=== PATIENT | female | born 1935 | race Caucasian/White ===

== ENCOUNTER 2017-01-01 16:50 | Observation (INO) | payer MEDICARE, OTHER ==
[~2017-01-01] VITALS: Ht 152.4 cm; Wt 84.9 kg
[2017-01-01 16:55] VITALS: BP 180/92; PULSE 77; RESP 18; O2SAT 97
--- NOTE | 2017-01-01 17:07 | ED.REPORT ---
HPI-Stroke / CVA Jan 01, 2017 ED Provider: Reji Cruz MD Patient is a 81 year old female who presents to the ED after having an episode of one sided blurred vision followed by a short episode of confusion at 1600. Per the patient's daughter, the patient was at the checkout when the patient told the daughter that she was having blurred vision on one side. After going to get a drink, the patient then had an episode of confusion where she couldn't remember her son after being unable to understand a text message from him. The patient complains of a headache. Patient's daughter denies facial droop, slurred speech, one sided weakness, vomiting, cough, diarrhea or recent illness. The patient reports that she remembers these events happening and knows that she was confused. Patient states that she has had similar symptoms but they were not as bad and was told by a neurologist that these might be small TIA's or complex mini seizures. Nursing Notes Stated Complaint: POSS POST SEIZURE/TIA Chief Complaint: Neuro Symptoms/ Deficits Nursing Notes Reviewed: Yes Allergies: Coded Allergies: meperidine (Verified Allergy, Unknown, 01/01/17) Uncoded Allergies: HORSE SERUM (Allergy, Unknown, 01/01/17) SULFA (Allergy, Unknown, 01/01/17) Scheduled Cephalexin (Keflex) 500 Mg Capsule 28 MG PO QID General Time Seen by Provider: 17:11 Chief Complaint Confusion Hx Obtained From: Patient, Daughter Arrived By: Walk-in Time last known well 1600 Sudden in Onset?: Yes Symptom Duration: 1 - 15 minutes Progression Since Onset: Gradually improving Severity: Current: No pain currently Associated with: Denies: Speech problem Similar Sx Previous: No Risk Factors )( TPA Administration/Criteria Stroke Thrombolytic Therapy : TPA Considered: Yes Neurologist Contacted: No Disc Risk/Benefit/Alternatives: Yes Intensive Monitoring Performed: Yes TPA Administered Intravenously: No, not indicated (patient had a measurable deficit of only 1, no expected improvement with TPA) Inclusion Criteria: N/A Relative Exclusion Crit: Minor improv stroke sym NIH Stroke Scale Level of Consciousness: Alert and responsive (0) Ask Month & Age: Both questions right (0) Open/Close Eyes/Hand Cutting Inspector: Performs both tasks (0) Horizontal EO Movements: None (0) Visual Ku: No visual loss (0) Facial Palsy: Normal symmetry (0) Right Arm Motor Drift (10s): No drift 10 sec (0) Left Arm Motor Drift (10s): No drift 10 sec (0) Right Leg Motor Drift (5s): No drift 5 sec (0) Left Leg Motor Drift (5s): No drift 5 sec (0) Limb Ataxia FNF/Heel-Carrion: No ataxia (0) Sensation (Arms/Legs/Face): No sensory loss (0) Language Aphasia: Loss fluency ID matls (1) Dysarthria: No dysarthria, normal (0) Extinction/Inattention: No exctinct/inattent (0) NIHSS Score: 1 Time NIHSS Performed: 17:10 Date NIHSS Performed: Jan 01, 2017 )( CVA Risk Stratification Age >60No Atrial fibrillation, No Diabetes mellitus Risk factors reviewed Past Medical History Past Medical History none reported Smoking History Unknown if Ever Smoker Social History Drug Use: Denies drug use Other Social History: Good social support Ambulatory Status Independent Review of Systems Review of Systems Note: -facial droop Eyes: Reports: Blurred right, Denies: Visual loss bilateral Respiratory: Denies: Non-productive cough, Shortness of breath GI: Denies: Diarrhea, Nausea, Vomiting Skin: Denies Itching, Denies Rash Neurologic: Reports: Confusion, Headache, Denies: Numbness, Problem walking, Slurred speech, Unable to speak, Weakness Complete sys rev & neg: except as marked. Physical Exam Initial Vital Signs Vital Signs (First) Date Time Temp Pulse Resp B/P Pulse Ox O2 Delivery O2 Flow Rate FiO2 01/01/17 16:55 36.6 77 18 180/92 97 Room Air Initial VS: Reviewed General/Constitutional: Awake, Alert Head / Eyes: Atraumatic, Normocephalic, PERRL, EOMI Neck: Atraumatic, Supple Respiratory / Chest: Atraumatic, Breath sounds NL, Breath sounds = bilat, No respiratory distress Cardiovascular: Heart rate NL, Regular rhythm, Heart sounds NL Neurologic: Oriented X3, Speech NL, No motor deficits, No sensory deficits, CN II - XII intact, Reflexes equal bilat, Cerebellar NL, Memory NL Upper Extremity / MS: Atraumatic, Full range of motion Lower Extremity / Pelvis / MS: Atraumatic, Full range of motion Skin: Atraumatic, Color NL, No rash, Warm, Dry Psychiatric: Affect NL, Mood NL Interpretation & Diagnostics Interpretation & Diagnostics: BRAIN MRI: IMPRESSION: 1. No acute intracranial findings. Specifically, no increased restricted diffusion to suggest acute or subacute infarct. 2. Extensive findings likely associated with chronic microvascular ischemic changes. Dictated by: Samantha Saucedo M.D. on 01/01/2017 at 19:01 Approved by: Samantha Saucedo M.D. on 01/01/2017 at 19:04 Lab Results Interpretation Result Diagram: 01/01/17 1745 01/01/17 1745 Test 01/01/17 17:45 01/01/17 18:25 White Blood Count 8.4th/mm3 (3.8-10.1) Red Blood Count 4.58mil/mm3 (3.90-5.20) Hemoglobin 13.4g/dL (12.0-15.6) Hematocrit 40.0% (35.0-46.0) Mean Corpuscular Volume 87.3fL (81-100) Mean Corpuscular Hemoglobin 29.3pg (27.0-35.0) Mean Corpuscular Hemoglobin Concent 33.5% (32.0-37.0) Red Cell Distribution Width 12.7% (12.3-15.4) Platelet Count 211bil/L (150-400) Neutrophils (%) (Auto) 65.0% (40-74) Lymphocytes (%) (Auto) 19.8% (14-46) Monocytes (%) (Auto) 9.4% (4-12) Eosinophils (%) (Auto) 5.1% (0-5) Basophils (%) (Auto) 0.6% (0-3) Sodium Level 140mEq/L (134-144) Potassium Level 3.7mEq/L (3.5-5.2) Chloride Level 100mEq/L (97-108) Carbon Dioxide Level 23mmol/L (18-29) Blood Urea Nitrogen 18mg/dL (8-27) Creatinine 0.81mg/dL (0.57-1.00) Estimat Glomerular Filtration Rate 98mL/min (>59) Glucose Level 105mg/dL (60-99) Calcium Level 9.2mg/dL (8.5-10.1) Total Bilirubin 1.1mg/dL (0.0-1.2) Aspartate Amino Transf (AST/SGOT) 34U/L (0-50) Alanine Aminotransferase (ALT/SGPT) 38U/L (0-32) Alkaline Phosphatase 69U/L (25-165) Total Protein 7.0g/dL (6.4-8.4) Albumin 4.3g/dL (3.4-5.0) Hold [place] Top Tube Received (Received) Urine Color Yellow (YELLOW) Urine Appearance Clear (CLEAR,HAZY) Urine pH 5.5 (5.0-8.0) Urine Specific [place] 1.005 (1.003-1.035) Urine Protein Negativemg/dL (NEG,TRACE) Urine Glucose (UA) Negativemg/dL (NEGATIVE) Urine Ketones Negativemg/dL (NEGATIVE) Urine Occult Blood Negative (NEGATIVE) Urine Nitrite Negative (NEGATIVE) Urine Bilirubin Negative (NEGATIVE) Urine Urobilinogen Normalmg/dL (NORMAL) Urine Leukocyte Esterase Trace (NEGATIVE) Urine RBC 0-2/hpf (0-2) Urine WBC 11-50/hpf (0-5) Urine Epithelial Cells Few/hpf (NONE-MOD) Urine Crystals None seen (NONE SEEN) Urine Bacteria Many/hpf (NONE-FEW) Urine Hyaline Casts None/lpf (NONE) Urine Granular Casts None seen (NONE SEEN) Urine Waxy Casts None seen (NONE SEEN) Urine Red Blood Cell Casts None seen (NONE SEEN) Urine White Blood Cell Casts None seen (NONE SEEN) Urine Mucus None seen (None Seen) Urine Trichomonas None seen (NONE SEEN) Urine Yeast None (NONE SEEN) Urinalysis Comment None Urine Culture Reflexed Indicated Re-Eval/Medical Decision Re-Evaluation/Progress #1: Time of Eval: 19:45 Re-Evaluation/Progress Note: Discussed MRI and labs. Re-Evaluation/Progress #2: Time of Eval: 20:39 Re-Evaluation/Progress Note: Patient is still complaining of a headache. She rates the pain as a 7/10 Re-Evaluation/Progress #3: Time of Eval: 21:32 Re-Evaluation/Progress Note: Because of the intermittent delirium and disorientation I believe that an initial hospital stay is appropriate. Discussed plan for admit. Patient understands and agrees to plan. All questions were addressed. Consultation : Referral / Consult Name: Alejandra Hendrickson DO Consulted With: Hospitalist Call Returned at: 21:34 Wader Boot Top Assembler: Agrees with eval, Agrees with plan, Accepts admit Counseled Regarding: Diagnosis, Lab results, Need for admission Patient Discharge & Departure Impression: Primary Impression: UTI (urinary tract infection) Urinary tract infection type: site unspecified Hematuria presence: without hematuria Qualified Code: N39.0 - Urinary tract infection, site not specified Additional Impressions: Headache Acute delirium Disposition: ADMITTED TO HOSPITAL Discharge Condition All VS Reviewed: Yes Condition: Stable Referrals: Edwin Daniels DO (PCP) Jed Attestation Portions of this note were transcribed by Nicole Kimball. I, Dr. Cruz personally performed the history, physical exam and medical decision-making; I reviewed and confirmed the accuracy of the information in the transcribed note. Signed by: Jed Riojas, 01/01/17 copies to: Edwin Daniels Kirk H MD Jan 01, 2017 17:07 Stacy Kimball Jan 01, 2017 17:21 Reji Cruz MD Jan 01, 2017 17:07 Stacy Kimball Jan 01, 2017 17:21
[2017-01-01 17:56] LABS: BASOPHILS % (AUTO) 0.6 % (0-3); EOSINOPHILS % (AUTO) 5.1 % (0-5); MONOCYTES % (AUTO) 9.4 % (4-12); Mean Corpuscular Hemoglobin 29.3 pg (27.0-35.0); Mean Corpuscular Volume 87.3 fL (81-100); Platelet Count 211 bil/L (150-400)
[2017-01-01 18:49] LABS: APPEARANCE,URINE CLEAR (CLEAR,HAZY); COLOR,URINE YELLOW (YELLOW); PH,URINE 5.5 (5.0-8.0)
[2017-01-01 18:50] LABS: OCCULT BLOOD,URINE NEGATIVE (NEGATIVE); UROBILINOGEN,URINE NORMAL (NORMAL)
--- NOTE | 2017-01-01 19:06 | DRSVH ---
PROCEDURE: MRI BRAIN WITHOUT CONTRAST ([id number]) INDICATIONS: expressive aphasia TECHNIQUE: Non-contrast axial T1 spin echo, axial T2 fast spin echo, sagittal and axial FLAIR, coronal T2 fast s pin echo, axial gradient echo, axial diffusion and ADC through the brain. COMPARISON: None. FINDINGS: Image quality: Excellent. CSF spaces: Ventricles appear symmetric in size and shape. Basal cisterns are patent. No extra-axi al fluid collections. Brain: No intracranial bleeds or mass effects. There is cerebral volume loss for age. There are ma rked periventricular and deep white matter chronic small vessel ischemic changes. Brainstem appears normal. Diffusion-weighted images show no acute ischemic insults. No chronic ischemic insults. Nor mal intravascular flow voids are present. Skull and face: Calvarial bone marrow is normal in signal. Orbits are normal. Sinuses: Sinuses and mastoids are clear. IMPRESSION: 1. No acute intracranial findings. Specifically, no increased restricted diffusion to suggest acute o r subacute infarct. 2. Extensive findings likely associated with chronic microvascular ischemic changes. Dictated by: Samantha Saucedo M.D. on 01/01/2017 at 19:01 Approved by: Samantha Saucedo M.D. on 01/01/2017 at 19:04
[2017-01-01 19:45] VITALS: BP 157/81; PULSE 66; RESP 16; O2SAT 95
[2017-01-01] MEDS ORDERED: CEPH-512 PO (20:28)
[2017-01-01 20:51] VITALS: BP 149/69; PULSE 68; RESP 18; O2SAT 94
[2017-01-01 22:00] VITALS: BP 165/75; PULSE 78; RESP 14; O2SAT 92
[2017-01-01] MEDS ORDERED: Alum-Mag Hydrox-Simeth 30 mL Suspension PO PRN ×2 (22:25→22:40)
[2017-01-01] MEDS ORDERED: Ondansetron 2 mg/mL 2 mL Inj IVPUSH PRN ×2 (22:25→22:40)
[2017-01-01] MEDS ORDERED: Labetalol 5 mg/mL 4 mL Inj IVPUSH PRN (22:40)
[2017-01-01] MEDS ORDERED: Polyethylene Glycol (PEG) 17 Gm Powder PO PRN (22:40)
--- NOTE | 2017-01-01 22:51 | PCM.HPMED ---
Subjective Date of Service Jan 01, 2017 Primary Provider: Admitting Physician: Alejandra Hendrickson DO Primary Care Physician: Edwin Daniels DO Attending Physician: Alejandra Hendrickson DO Chief Complaint: Acute confusion and blurred vision History of Present Illness: 81-year-old female with a history of TIA, hyperlipidemia, hypertension, and questionable seizure activity presents to the emergency department due to acute onset of confusion, headache, and left hemianopsia that occurred at 1600 this afternoon while shopping. Per the patient's daughter, the patient and daughter were shopping and when the patient went to check out she suddenly became confused and called her daughter over. Her daughter then called her brother when this was communicated to the patient patient did not know who she was talking about. Patient also complained to her daughter at that time of blurry vision to the left, commenting that with one eye open she could only see clearly to the right and not the left. The patient was brought to the emergency department by her daughter, and the daughter describes her mother bobbing her head back and forth, and bilateral hand tremors. They deny shortness of breath, chest pain, fever, chills, abdominal pain, nausea, dizziness, or peripheral sensory loss or weakness. The patient has had 3 previous TIAs with the last being in May 2015, and all of them have had to do more with vision deficits then with confusion. She was previously on Plavix until a couple weeks ago when it was stopped by her primary care doctor. She has a neurologist down in [place] who feels that his episodes are less likely TIAs than they are partial complex seizures. Family denies any moments prior to the confusion when the patient was shaking, inattentive, or exhibiting other strange behavior. In the emergency department the patient underwent noncontrast MRI which was negative for acute ischemia. Blood work is relatively unremarkable, does show mild ALT elevation at 38, and a very mild hyperglycemia at 105. Patient's UA was negative for nitrite, had trace leukocyte esterase, and many bacteria and was sent for culture. She denies symptoms of UTI Review of Systems: Complete review of systems performed; pertinent positives and negatives per history of present illness, all other systems reviewed and are negative Allergies Coded Allergies: meperidine (Verified Allergy, Unknown, 01/01/17) Uncoded Allergies: HORSE SERUM (Allergy, Unknown, 01/01/17) SULFA (Allergy, Unknown, 01/01/17) Home Medications Fosamax 70 mg by mouth weekly Amlodipine 5 mg by mouth daily Aspirin 81 mg by mouth daily Atorvastatin 40 mg by mouth daily Dicyclomine 10 mg by mouth when necessary for diarrhea Fosinopril 20 mg by mouth twice a day B12 500 g sublingual morning Pantoprazole 40 mg by mouth morning Paroxetine 20 mg by mouth morning PMH Osteoporosis Hypertension Hyperlipidemia B12 deficiency GERD Depression Surgical History None reported Family History Father has a history of heart disease and [place] No prior history of strokes in the family Social History Hx Alcohol Use: No Hx Substance Use: No Smoking Status: Unknown if Ever Smoker Exam Vital Signs Vital Sign - Last Date Time Temp Pulse Resp B/P Pulse Ox O2 Delivery O2 Flow Rate FiO2 01/01/17 20:51 68 18 149/69 94 Room Air 01/01/17 16:55 36.6 Exam General: Confused appearing female of stated age, in no acute distress HEENT: PERRLA, EOMI, nonicteric, membranes dry Lymph: No lymphadenopathy Cardio: Regular rate and rhythm no murmurs rubs or gallops Respiratory: CTA bilaterally, no wheezes, no crackles Abdomen: Soft, positive bowel sounds, nontender, nondistended Extremities: No edema, 4.5/5 strength, sensation intact Psych: Appropriate mood and affect Skin: No rash Neuro: CN II through XII grossly intact, sensation intact throughout; heel-to- merchant, [id number], Babinski, and Romberg's all negative; memory seems to be a little impaired but patient follows instructions well Lab and Diagnostics Result Diagram: 01/01/17 1745 01/01/17 1745 X-Rays, CTs and MRIs MRI brain without contrast 1. No acute intracranial findings. Specifically, no increased restricted diffusion to suggest acute or subacute infarct. 2. Extensive findings likely associated with chronic microvascular ischemic changes. Dictated by: Samantha Saucedo M.D. on 01/01/2017 at 19:01 Assessment & Plan 81-year-old female with a history of TIA, hyperlipidemia, hypertension, and questionable seizure activity presents to the emergency department due to acute onset of confusion, headache, and left homonymous hemianopsia that occurred at 1600 this afternoon while shopping, with a noncontrast MRI negative for acute stroke TIA/stroke with headache; present admission; ongoing -This is the fourth episode of similar symptoms involving acute changes in vision; patient also complains of confusion and headache with this episode; concern for posterior circulation compromise -Report from family that her neurologist in [place] thinks this may be related to seizure activity -MRI was negative for acute stroke -CTA brain and neck tomorrow -Atorvastatin 40 mg daily -Plavix ordered; pt stopped plavix 2 weeks ago -Aspirin 325 mg daily -Lipid panel and A1c -Permissive hypertension; control>220 with labetalol -Recommend follow-up with neurology -PT/ST/OT ordered -Swallow screen ordered; NPO until screen -morphine for severe pain Hypertension;present on admission; ongoing -Hold lisinopril and amlodipine for permissive htn -Day team to reinitiate blood pressure medications Osteoporosis-hold Fosamax Hyperlipidemia-atorvastatin as above B12 deficiency-hold B12 supplement while in hospital GERD-famotidine 20 mg twice a day Depression-continue Paxil Disposition: Patient has been admitted to the general medical floor under observation Full code Pain Evaluation: Adequate Pain Control GI Prophylaxis: H2 kevin VTE Prophylaxis Indicated: Contraindicated Resuscitation Status: CPR: Attempt Resuscitation Attending Statement The patient was seen and examined together with house staff on 01/01/2017 and I agree with the history, exam and plan as outlined in the note above. Oliverio Yao DO Jan 01, 2017 22:51 Alejandra Hendrickson DO Jan 02, 2017 04:17
[2017-01-01] MEDS ORDERED: PANT40TA3 PO (23:01)
[2017-01-01] MEDS ORDERED: ALEN70TA2 PO (23:01)
[2017-01-01] MEDS ORDERED: AMLO5TAB2 PO (23:01)
[2017-01-01] MEDS ORDERED: LISI-567 PO (23:01)
[2017-01-01] MEDS ORDERED: MECO5000 SL (23:01)
[2017-01-01] MEDS ORDERED: OMEG-158 PO (23:01)
[2017-01-01] MEDS ORDERED: ASPI-973 PO (23:01)
[2017-01-01] MEDS ORDERED: PARO20TA5 PO (23:01)
[2017-01-01] MEDS ORDERED: ATOR40TA69 PO (23:01)
[2017-01-01] MEDS ORDERED: DICY10CA13 PO (23:01)
[2017-01-01] MEDS ORDERED: PSYL0.5216 PO (23:01)
[2017-01-01 23:09] VITALS: BP 166/76; PULSE 82; RESP 17; O2SAT 94
--- NOTE | 2017-01-01 23:11 | NUR ---
admit Pt arrived on stretcher from the ED, with all belongings, daughter, son and granddaughter, walked from stretcher to bed. CPAP coming from home. Pt was alert and oriented x3, neuros wnl, pt cooperative, answering some questions about health. Daughter will stay for the night.
[2017-01-01 23:15] VITALS: BP 159/77; PULSE 74; RESP 16; O2SAT 93
[2017-01-01] MEDS ORDERED: Ketorolac 15 mg/mL Inj IVPUSH PRN (23:55)
[2017-01-02] MEDS: 0.9% Sodium Chloride 1,000 ML IV SCH ×3 (00:19→14:40)
[2017-01-02 05:20] VITALS: PULSE 76
[2017-01-02 06:37] VITALS: BP 116/67; PULSE 65; RESP 16; O2SAT 98
[2017-01-02] MEDS: Famotidine Inj 10 MG in Dextrose 5% 50 ML IV SCH ×2 (08:10→22:10)
[2017-01-02] MEDS: cefTRIAXone Inj 1,000 MG in Dextrose 5% Minibag Plus 50 ML IV SCH (08:19)
--- NOTE | 2017-01-02 09:21 | NUR ---
Evaluation completed. Please go to "Notes" then click on "Assessments and Notes" (bottom left corner of screen). Then select appropriate discipline tab on top of screen.
--- NOTE | 2017-01-02 13:00 | NUR ---
CORTNEY explained and signed. Copy of CORTNEY and Medicare self administered medication information given to pt.
--- NOTE | 2017-01-02 13:12 | DRSVH ---
PROCEDURE: CT ANGIO HEAD AND NECK (P) INDICATIONS: R/O Cerebrial Vascular Disease Intracranial TECHNIQUE: Pre-contrast 4.5 mm thick sections acquired from the foramen magnum to the vertex. After the adminis tration of intravenous contrast, 1 mm thick sections acquired from the aortic arch through the [place]. Post-contrast 4.5 mm thick sections then re-acquired from the foramen magnum to the vert ex. 3-dimensional elzbjkw-ahsixgifg-nrbnvpbban (MIP) and/or volume rendering reformats were acquired of the central intracranial vasculature and neck separately. For radiation dose reduction, the foll owing was used: automated exposure control, adjustment of mA and/or kV according to patient size. COMPARISON: [facility], MR, MR BRAIN WO CON, 01/01/2017, 18:29. FINDINGS: Image quality: Excellent. BRAIN: CSF spaces: Ventricles are normal in size and shape. Basal cisterns are patent. No extra-axial flu id collections. Brain: No midline shift. No intracranial bleeds or masses. Love-white matter interface appears int act. Skull and face: Calvarium and facial bones appear intact, without suspicious lesions. Orbits appear normal. Sinuses: Sinuses and mastoids are clear. HEAD CT ANGIOGRAPHY: Anterior circulation: Intracranial internal carotid arteries are normal in size and flow. The flow within the paired anterior cerebral arteries is normal and symmetric. The flow within the middle cer ebral arteries is normal and symmetric. The anterior communicating artery is seen. No aneurysms are seen. Posterior circulation: Visualized portions of the vertebral arteries demonstrate normal caliber, and join to form a normal appearing basilar artery. Flow within the posterior cerebral arteries is norm al and symmetric. No aneurysms are seen. NECK CT ANGIOGRAPHY: Carotid system: The great vessels demonstrate a conventional anatomy as they arise from the aortic [facility]. The origins of the common carotid arteries appear patent. The common carotid arteries demonstr ate normal caliber and courses. The bifurcation regions are both widely patent. The internal caroti d arteries demonstrate normal calibers and courses. Posterior circulation: The origins of the vertebral arteries both appear widely patent. The more mac perior extracranial portions of both vertebral arteries also demonstrate normal courses and calibers. They join to form a normal appearing basilar artery. Soft tissues: Visualized neck soft tissues demonstrate no suspicious abnormalities. Bones: No suspicious bony lesions. Visualized cervical spine appears normally aligned. IMPRESSION: Normal examination except for minimal atherosclerotic plaquing in the common and proxima l internal carotid arteries. No sign of dissection, occlusion or embolus. Dictated by: Brenton Coronel M.D. on 01/02/2017 at 13:06 Approved by: Brenton Coronel M.D. on 01/02/2017 at 13:10
--- NOTE | 2017-01-02 16:05 | PCM.PNMED ---
Subjective Date of Service Jan 02, 2017 Subjective Patient has no current complaints and daughters at bedside. She says she has had 4 separate episodes of visual field cut occurring. It would last from 5-10 minutes. She has seen neurologist regarding this in [place] who thought it might be a seizure but per patient EEG was negative. Exam Vital Signs Vital Sign - Last Date Time Temp Pulse Resp B/P Pulse Ox O2 Delivery O2 Flow Rate FiO2 01/02/17 06:37 36.4 65 16 116/67 98 CPAP Exam Constitutional: Elderly female in no acute distress Head: Normocephalic and traumatic Chest: Clear to auscultation Cor: Regular rate and rhythm S1-S2 without murmur Abdomen: Soft nontender bowel sounds present Extremities: No pedal edema Neuro: Alert and oriented 3, motor strength is intact bilaterally, visual estes are intact IVs and Medications Medications Reviewed: Medications were reviewed in detail Lab and Diagnostics Result Diagram: 01/01/17174401/01/171744 X-Rays, CTs and MRIs MRI brain without contrast 1. No acute intracranial findings. Specifically, no increased restricted diffusion to suggest acute or subacute infarct. 2. Extensive findings likely associated with chronic microvascular ischemic changes. Dictated by: Samantha Saucedo M.D. on 01/01/2017 at 19:01 PROCEDURE: CT ANGIO HEAD AND NECK (P) INDICATIONS: R/O Cerebrial Vascular Disease Intracranial TECHNIQUE: Pre-contrast 4.5 mm thick sections acquired from the foramen magnum to the vertex. After the administration of intravenous contrast, 1 mm thick sections acquired from the aortic arch through the [place]. Post-contrast 4.5 mm thick sections then re-acquired from the foramen magnum to the vertex. 3- dimensional wxbkrcy-codxndmfm-wqsisjshko (MIP) and/or volume rendering reformats were acquired of the central intracranial vasculature and neck separately. For radiation dose reduction, the following was used: automated exposure control, adjustment of mA and/or kV according to patient size. COMPARISON: [facility], MR, MR BRAIN WO CON, 01/01/2017, 18:29. FINDINGS: Image quality: Excellent. BRAIN: CSF spaces: Ventricles are normal in size and shape. Basal cisterns are patent. No extra-axial fluid collections. Brain: No midline shift. No intracranial bleeds or masses. Love-white matter interface appears intact. Skull and face: Calvarium and facial bones appear intact, without suspicious lesions. Orbits appear normal. Sinuses: Sinuses and mastoids are clear. HEAD CT ANGIOGRAPHY: Anterior circulation: Intracranial internal carotid arteries are normal in size and flow. The flow within the paired anterior cerebral arteries is normal and symmetric. The flow within the middle cerebral arteries is normal and symmetric. The anterior communicating artery is seen. No aneurysms are seen. Posterior circulation: Visualized portions of the vertebral arteries demonstrate normal caliber, and join to form a normal appearing basilar artery. Flow within the posterior cerebral arteries is normal and symmetric. No aneurysms are seen. NECK CT ANGIOGRAPHY: Carotid system: The great vessels demonstrate a conventional anatomy as they arise from the aortic arch. The origins of the common carotid arteries appear patent. The common carotid arteries demonstrate normal caliber and courses. The bifurcation regions are both widely patent. The internal carotid arteries demonstrate normal calibers and courses. Posterior circulation: The origins of the vertebral arteries both appear widely patent. The more superior extracranial portions of both vertebral arteries also demonstrate normal courses and calibers. They join to form a normal appearing basilar artery. Soft tissues: Visualized neck soft tissues demonstrate no suspicious abnormalities. Bones: No suspicious bony lesions. Visualized cervical spine appears normally aligned. IMPRESSION: Normal examination except for minimal atherosclerotic plaquing in the common and proximal internal carotid arteries. No sign of dissection, occlusion or embolus. Dictated by: Brenton Coronel M.D. on 01/02/2017 at 13:06 Approved by: Brenton Coronel M.D. on 01/02/2017 at 13:10 Assessment & Plan 81-year-old female with a history of TIA, hyperlipidemia, hypertension, and questionable seizure activity presents to the emergency department due to acute onset of confusion, headache, and left homonymous hemianopsia that occurred at 1600 this afternoon while shopping, with a noncontrast MRI negative for acute stroke TIA/stroke with headache; present admission; ongoing -This is the fourth episode of similar symptoms involving acute changes in vision; patient also complains of confusion and headache with this episode; concern for posterior circulation compromise -Report from family that her neurologist in [place] thinks this may be related to seizure activity -MRI was negative for acute stroke -CTA brain and neck -Atorvastatin 40 mg daily -Plavix ordered; pt stopped plavix 2 weeks ago -Aspirin 325 mg daily -Lipid panel and A1c -Permissive hypertension; control>220 with labetalol -Recommend follow-up with neurology -PT/ST/OT ordered -Swallow screen ordered; NPO until screen -Awaiting echocardiogram to be done Hypertension;present on admission; ongoing -Hold lisinopril and amlodipine for permissive htn -Day team to reinitiate blood pressure medications Osteoporosis-hold Fosamax Hyperlipidemia-atorvastatin as above B12 deficiency-hold B12 supplement while in hospital GERD-famotidine 20 mg twice a day Depression-continue Paxil Disposition: Patient has been admitted to the general medical floor under observation Full code GI Prophylaxis: H2 kevin VTE Mechanical Devices: Intermittant Pneumatic CD Resuscitation Status: CPR: Attempt Resuscitation Time spent 30 minutes Katerina Denis MD Jan 02, 2017 16:05
[2017-01-02 17:59] VITALS: BP 165/77; PULSE 72; RESP 16; O2SAT 98
--- NOTE | 2017-01-02 18:33 | NUR ---
Diarrhea Patient has IBS, has had diarrhea x 7 since 1500, told her it was likely d/t her IV abx. Stated her electrolytes would be checked in the a.m. & to keep drinking fluid, IV fluids d/c'd this a.m. d/t being placed on a diet. Patient encouraged to remove shorts from home & wear pull up brief in case of urgency, bsc placed next to bed for NOC time, understands she shouldn't get up quickly to get to bathroom to avoid falling.
[2017-01-03 00:43] VITALS: BP 141/67; PULSE 58; RESP 16; O2SAT 96
[2017-01-03 05:40] VITALS: BP 124/72; PULSE 65; RESP 16; O2SAT 98
[2017-01-03] MEDS: cefTRIAXone Inj 1,000 MG in Dextrose 5% Minibag Plus 50 ML IV SCH (06:03)
--- NOTE | 2017-01-03 06:27 | NUR ---
Neuro Appears alert and oriented all shift without any noted neuro deficits other than some generalized weakness. Diarrhea has resolved which was noted on previous shift. Oriented to call light use and using for needs.
[2017-01-03 06:32] LABS: BASOPHILS % (AUTO) 1.1 % (0-3); EOSINOPHILS % (AUTO) 6.6 % (0-5); MONOCYTES % (AUTO) 10.3 % (4-12); Mean Corpuscular Hemoglobin 29.5 pg (27.0-35.0); Mean Corpuscular Volume 88.2 fL (81-100); NEUTROPHILS % (AUTO) 56.2 % (40-74); Platelet Count 215 bil/L (150-400)
--- NOTE | 2017-01-03 07:32 | PCM.DIMED ---
Discharge Instructions Date of Service Jan 03, 2017 Dates of Hospitalization Jan 01, 2017 at 22:12 Discharge Diagnosis Discharge Diagnosis Acute ,transient,recurrent right hemianopsia,UTI Diet Discharge Diet: Heart Healthy Activity Discharge Activity: No restrictions Call your provider Call your provider for: Fever or Chills, Shortness of breath, Bleeding, Chest pain, Vomitting, Excessive diarrhea, Weakness (unilateral) Patient Instructions Follow-up Provider: Edwin Daniels DO Follow-up with PCP in: Other (3-5 days,sooner if problems.) Katerina Denis MD Jan 03, 2017 07:32
[2017-01-03] MEDS ORDERED: CEPH-512 PO (07:34)
[2017-01-03] MEDS ORDERED: CLOP75TA28 PO (07:34)
--- NOTE | 2017-01-03 07:42 | PCM.DC.MED ---
Discharge Summary Date of Service Jan 03, 2017 Dates of Hospitalization Date of Hospital Admission Jan 01, 2017 at 22:12 Date of Discharge: Jan 03, 2017 Providers: Admitting Physician: Alejandra Hendrickson DO Primary Care Physician: Edwin Daniels DO Attending Physician: Katerina Denis MD Diagnosis at Time of Discharge Diagnosis at Time of Discharge Acute ,transient,recurrent right hemianopsia,UTI Procedures XRay, CTs & MRIs MRI brain without contrast 1. No acute intracranial findings. Specifically, no increased restricted diffusion to suggest acute or subacute infarct. 2. Extensive findings likely associated with chronic microvascular ischemic changes. Dictated by: Samantha Saucedo M.D. on 01/01/2017 at 19:01 PROCEDURE: CT ANGIO HEAD AND NECK (P) INDICATIONS: R/O Cerebrial Vascular Disease Intracranial TECHNIQUE: Pre-contrast 4.5 mm thick sections acquired from the foramen magnum to the vertex. After the administration of intravenous contrast, 1 mm thick sections acquired from the aortic arch through the [place]. Post-contrast 4.5 mm thick sections then re-acquired from the foramen magnum to the vertex. 3- dimensional pylwnvr-xswecaiwg-bbgpnjupsn (MIP) and/or volume rendering reformats were acquired of the central intracranial vasculature and neck separately. For radiation dose reduction, the following was used: automated exposure control, adjustment of mA and/or kV according to patient size. COMPARISON: [facility], MR, MR BRAIN WO CON, 01/01/2017, 18:29. FINDINGS: Image quality: Excellent. BRAIN: CSF spaces: Ventricles are normal in size and shape. Basal cisterns are patent. No extra-axial fluid collections. Brain: No midline shift. No intracranial bleeds or masses. Love-white matter interface appears intact. Skull and face: Calvarium and facial bones appear intact, without suspicious lesions. Orbits appear normal. Sinuses: Sinuses and mastoids are clear. HEAD CT ANGIOGRAPHY: Anterior circulation: Intracranial internal carotid arteries are normal in size and flow. The flow within the paired anterior cerebral arteries is normal and symmetric. The flow within the middle cerebral arteries is normal and symmetric. The anterior communicating artery is seen. No aneurysms are seen. Posterior circulation: Visualized portions of the vertebral arteries demonstrate normal caliber, and join to form a normal appearing basilar artery. Flow within the posterior cerebral arteries is normal and symmetric. No aneurysms are seen. NECK CT ANGIOGRAPHY: Carotid system: The great vessels demonstrate a conventional anatomy as they arise from the aortic arch. The origins of the common carotid arteries appear patent. The common carotid arteries demonstrate normal caliber and courses. The bifurcation regions are both widely patent. The internal carotid arteries demonstrate normal calibers and courses. Posterior circulation: The origins of the vertebral arteries both appear widely patent. The more superior extracranial portions of both vertebral arteries also demonstrate normal courses and calibers. They join to form a normal appearing basilar artery. Soft tissues: Visualized neck soft tissues demonstrate no suspicious abnormalities. Bones: No suspicious bony lesions. Visualized cervical spine appears normally aligned. IMPRESSION: Normal examination except for minimal atherosclerotic plaquing in the common and proximal internal carotid arteries. No sign of dissection, occlusion or embolus. Dictated by: Brenton Coronel M.D. on 01/02/2017 at 13:06 Approved by: Brenton Coronel M.D. on 01/02/2017 at 13:10 Brief History 81-year-old female with a history of TIA, hyperlipidemia, hypertension, and questionable seizure activity presents to the emergency department due to acute onset of confusion, headache, and left hemianopsia that occurred at 1600 this afternoon while shopping. Per the patient's daughter, the patient and daughter were shopping and when the patient went to check out she suddenly became confused and called her daughter over. Her daughter then called her brother when this was communicated to the patient patient did not know who she was talking about. Patient also complained to her daughter at that time of blurry vision to the left, commenting that with one eye open she could only see clearly to the right and not the left. The patient was brought to the emergency department by her daughter, and the daughter describes her mother bobbing her head back and forth, and bilateral hand tremors. They deny shortness of breath, chest pain, fever, chills, abdominal pain, nausea, dizziness, or peripheral sensory loss or weakness. The patient has had 3 previous TIAs with the last being in May 2015, and all of them have had to do more with vision deficits then with confusion. She was previously on Plavix until a couple weeks ago when it was stopped by her primary care doctor. She has a neurologist down in [place] who feels that his episodes are less likely TIAs than they are partial complex seizures. Family denies any moments prior to the confusion when the patient was shaking, inattentive, or exhibiting other strange behavior. In the emergency department the patient underwent noncontrast MRI which was negative for acute ischemia. Blood work is relatively unremarkable, does show mild ALT elevation at 38, and a very mild hyperglycemia at 105. Patient's UA was negative for nitrite, had trace leukocyte esterase, and many bacteria and was sent for culture. She denies symptoms of UTI Hospital Course 81-year-old female with a history of TIA, hyperlipidemia, hypertension, and questionable seizure activity presents to the emergency department due to acute onset of confusion, headache, and left homonymous hemianopsia that occurred at 1600 this afternoon while shopping, with a noncontrast MRI negative for acute stroke TIA/stroke with headache; present admission; ongoing -This is the fourth episode of similar symptoms involving acute changes in vision; patient also complains of confusion and headache with this episode; concern for posterior circulation compromise -Report from family that her neurologist in [place] thinks this may be related to seizure activity -MRI was negative for acute stroke -CTA brain and neck did not have any significant findings for CVA -Atorvastatin 40 mg daily -Plavix ordered; pt stopped plavix 2 weeks ago -Aspirin 325 mg daily -Lipid panel and A1c -Permissive hypertension; control>220 with labetalol -Recommend follow-up with neurology -PT/ST/OT ordered -Swallow screen ordered; NPO until screen -Recommend outpatient echocardiogram and neurology consultation for further evaluation of these recurrent episodes of unilateral hemianopsia UTI,Acute,present on admission -> 100,000 gram negative rods for which she was started on IV Rocephin and to complete Keflex therapy as an outpatient 5 days -Related identification and sensitivities of this urine culture are pending at the time of discharge Hypertension;present on admission; ongoing -Hold lisinopril and amlodipine for permissive htn -Day team to reinitiate blood pressure medications -At discharge lisinopril and amlodipine have been restarted Osteoporosis-hold Fosamax Hyperlipidemia-atorvastatin as above B12 deficiency-hold B12 supplement while in hospital GERD-famotidine 20 mg twice a day Depression-continue Paxil Disposition: Home Full code Exam Vital Signs (Last) Date Time Temp Pulse Resp B/P Pulse Ox O2 Delivery O2 Flow Rate FiO2 01/03/17 05:40 36.7 65 16 124/72 98 CPAP Exam Constitutional: Elderly female in no acute distress Head: Normocephalic/atraumatic Eyes: PERRLA DC EOMI Mouth: No lesions Neck: No lesions Chest: Clear to auscultation Cor: Regular rate and rhythm S1-S2 without murmur Abdomen: Soft nontender bowel sounds present Extremities: No pedal edema Skin: No rashes Psych: Mood and affect are appropriate Neuro: Alert and oriented 3, motor strength is intact bilaterally Test 01/01/17 17:45 01/01/17 18:25 01/03/17 06:05 Triglycerides Level 184mg/dL (0-149) Cholesterol Level 124mg/dL (100-199) LDL Cholesterol, Calculated 42.200mg/dL (0-99) VLDL Cholesterol 36.800mg/dL HDL Cholesterol 45mg/dL (>39) Cholesterol/HDL Ratio 2.76 (0.0-4.4) Hold [place] Top Tube Received (Received) Urine Color Yellow (YELLOW) Urine Appearance Clear (CLEAR,HAZY) Urine pH 5.5 (5.0-8.0) Urine Specific [place] 1.005 (1.003-1.035) Urine Protein Negativemg/dL (NEG,TRACE) Urine Glucose (UA) Negativemg/dL (NEGATIVE) Urine Ketones Negativemg/dL (NEGATIVE) Urine Occult Blood Negative (NEGATIVE) Urine Nitrite Negative (NEGATIVE) Urine Bilirubin Negative (NEGATIVE) Urine Urobilinogen Normalmg/dL (NORMAL) Urine Leukocyte Esterase Trace (NEGATIVE) Urine RBC 0-2/hpf (0-2) Urine WBC 11-50/hpf (0-5) Urine Epithelial Cells Few/hpf (NONE-MOD) Urine Crystals None seen (NONE SEEN) Urine Bacteria Many/hpf (NONE-FEW) Urine Hyaline Casts None/lpf (NONE) Urine Granular Casts None seen (NONE SEEN) Urine Waxy Casts None seen (NONE SEEN) Urine Red Blood Cell Casts None seen (NONE SEEN) Urine White Blood Cell Casts None seen (NONE SEEN) Urine Mucus None seen (None Seen) Urine Trichomonas None seen (NONE SEEN) Urine Yeast None (NONE SEEN) Urinalysis Comment None Urine Culture Reflexed Indicated White Blood Count 6.2th/mm3 (3.8-10.1) Red Blood Count 4.48mil/mm3 (3.90-5.20) Hemoglobin 13.2g/dL (12.0-15.6) Hematocrit 39.5% (35.0-46.0) Mean Corpuscular Volume 88.2fL (81-100) Mean Corpuscular Hemoglobin 29.5pg (27.0-35.0) Mean Corpuscular Hemoglobin Concent 33.4% (32.0-37.0) Red Cell Distribution Width 12.9% (12.3-15.4) Platelet Count 215bil/L (150-400) Neutrophils (%) (Auto) 56.2% (40-74) Lymphocytes (%) (Auto) 25.5% (14-46) Monocytes (%) (Auto) 10.3% (4-12) Eosinophils (%) (Auto) 6.6% (0-5) Basophils (%) (Auto) 1.1% (0-3) Sodium Level 143mEq/L (134-144) Potassium Level 4.3mEq/L (3.5-5.2) Chloride Level 104mEq/L (97-108) Carbon Dioxide Level 22mmol/L (18-29) Blood Urea Nitrogen 19mg/dL (8-27) Creatinine 0.78mg/dL (0.57-1.00) Estimat Glomerular Filtration Rate 102mL/min (>59) Glucose Level 126mg/dL (60-99) Calcium Level 8.9mg/dL (8.5-10.1) Total Bilirubin 0.8mg/dL (0.0-1.2) Aspartate Amino Transf (AST/SGOT) 24U/L (0-50) Alanine Aminotransferase (ALT/SGPT) 29U/L (0-32) Alkaline Phosphatase 53U/L (25-165) Total Protein 6.2g/dL (6.4-8.4) Albumin 4.1g/dL (3.4-5.0) Microbiology Results RUN DATE: 01/02/17 [facility] LIVE PAGE 1 RUN TIME: 903 Specimen Inquiry PHYSICIAN Name: TAMELA ASCENCIO Age/Sex: 81/F Attend Dr: Katerina Denis MD Acct: [id number] Unit: [id number] Status: ADM [place] [facility] [place] Re01/01/17 Disch: Specimen: [id number] Collected: 01/01/17 Status: RES Req#: [id number] Received: 01/01/17 Source: URINE CC Sp Desc : PP Subm Dr: Reji Cruz MD Ordered: URINE CULT Procedure Result Verified Site Microbiology TERE CULT URINE Preliminary 01/02/17 PRELIMINARY ID GRAM NEGATIVE ARON ID AND SENS TO FOLLOW COLONY COUNT/QUANTITY >100,000 CFU/ml Discharge Medications Discharge Medications Alendronate Sodium (Fosamax) 70 Mg Tablet 70 MG PO WEEKLY (Reported) Amlodipine (Amlodipine) 5 Mg Tablet 5 MG PO DAILY (Reported) Aspirin (Aspirin) 81 Mg Tablet 81 MG PO DAILY (Reported) Atorvastatin Calcium (Atorvastatin Calcium) 40 Mg Tablet 40 MG PO DAILY ( Reported) Cephalexin (Keflex) 500 Mg Capsule 500 MG PO QID Prescribed by: KATERINA DENIS MD Clopidogrel (Clopidogrel) 75 Mg Tablet 75 MG PO DAILY Prescribed by: KATERINA DENIS MD Lisinopril (Lisinopril) 20 Mg Tablet 20 MG PO BID (Reported) Mecobalamin (B-12) 5,000 Mcg Tab.rapdis 5,000 MCG SL MORNING (Reported) [place]-3S/Dha/Epa/Fish Oil (Fish Oil [place]-3 Softgel) 980 Mg-253 Mg-647 Mg-1,400 Mg Capsule.dr 2 EACH PO BID (Reported) Pantoprazole DR (Pantoprazole DR) 40 Mg Tablet.dr 40 MG PO MORNING (Reported) Paroxetine (Paroxetine) 20 Mg Tablet 20 MG PO MORNING (Reported) Psyllium Husk (Fiber) 0.4 Gram Capsule 0.4 GM PO MORNING (Reported) As needed Dicyclomine (Dicyclomine) 10 Mg Capsule 10 MG PO DIRECTED PRN PRN For Diarrhea or Loose Stool (Reported) Followup Plan Discharge Diet: Heart Healthy Discharge Activity: No restrictions Follow-up Provider: Edwin Daniels DO Follow-up with PCP in: Other (3-5 days,sooner if problems.) Time spent Greater than 30 minutes was spent in preparation of discharge with greater than 50% of that time dedicated to patient counseling and coordination of care. copies to: Edwin Daniels Cheryl A MD Jan 03, 2017 07:42
[2017-01-03] MEDS: Famotidine Inj 10 MG in Dextrose 5% 50 ML IV SCH (08:12)
--- NOTE | 2017-01-03 10:13 | NUR ---
Discharge Note Pt discharged, daughter here to transport home. IV catheter x 1 removed. All belongings retrieved (cell phone & parent partner, trilogy Cpap, eyeglasses & upper dentures), nothing left behind. Discharge instructions/mediations discussed & understood by patient & daughter. Prescriptions to be hand carried to pharmacy. Mentation at baseline, voiding WNL, diarrhea slowed down since yesterday. Patient & family walked out by [employer].
== END 2017-01-03 09:50 | disposition home or self-care (01) ==
LOC: SED 16:50 → MPC 22:12
PROVIDERS: ADMIT Internal Medicine; ATTEND Specialist
DX: G45.9 Transient cerebral ischemic attack, unspecified (principal); H53.462 Homonymous bilateral field defects, left side; R41.0 Disorientation, unspecified; R51 Headache; N39.0 Urinary tract infection, site not specified; I10 Essential (primary) hypertension; M81.0 Age-related osteoporosis without current pathological fracture; E78.5 Hyperlipidemia, unspecified; E53.8 Deficiency of other specified B group vitamins; K21.9 Gastro-esophageal reflux disease without esophagitis; F32.9 Major depressive disorder, single episode, unspecified; Z79.82 Long term (current) use of aspirin
CPT/HCPCS: 36415; 70496; 70498; 70551; 80053; 80061; 81000; 83036; 85025; 87086; 87088; 87186; 92610; 96365; 96366; 96372; 97161; 99285; G0378; J0696; J1885; J7030; Q9967